=== PATIENT | male | born 1965 | race Hispanic/Latino ===

== ENCOUNTER 2016-08-30 11:10 | Emergency (ER) | payer OTHER ==
[2016-08-30 11:29] VITALS: RESP 20
--- NOTE | 2016-08-30 11:51 | ED PDOC ---
Arrival/HPI - General Chief Complaint: Upper Extremity Problem/Injury Time Seen by Provider: 08/30/16 11:14 Historian: Patient - History of Present Illness Narrative History of Present Illness (Text): 08/30/16 11:48 51-year-old male presents today with Left elbow pain status post exercising yesterday. Patient states he has been having problems with the elbow for the past couple of months and he was doing exercises for the triceps at the gym yesterday and felt a shooting pain to the posterior aspect of the elbow. Patient states he took 2 Advil last night without improvement of the symptoms. Patient states he is able to fully move the elbow but he has pain along the posterior aspect of the elbow. He denies numbness weakness tingling in the extremity. Time/Duration: Other (1 day) Symptom Onset: Sudden Symptom Course: Unchanged Quality: Aching, Stabbing Severity Level: 5 Activities at Onset: Other (lifting weights) Past Medical History - Provider Review Nursing Documentation Reviewed: Yes - Travel History Have you recently traveled outside [place] w/in the past 3 mons?: No - Infectious Disease Hx of Infectious Diseases: None - Cardiac Hx MO: Yes (2015) - Endocrine/Metabolic Hx Diabetes Mellitus Type 2: Yes - Psychiatric Hx Substance Use: No - Surgical History Hx Coronary Stent: Yes (x1) - Anesthesia Hx Anesthesia: Yes Hx Anesthesia Reactions: No Hx Malignant Hyperthermia: No Family/Social History - Physician Review Nursing Documentation Reviewed: Yes Family/Social History: Unknown Family HX Smoking Status: Never Smoked Hx Alcohol Use: Yes Frequency of alcohol use: Socially Hx Substance Use: No Allergies/Home Meds Allergies/Adverse Reactions: Allergies No Known Allergies Allergy (Verified 08/30/16 11:29) Home Medications: Home Meds Medication Instructions Recorded Confirmed Prasugrel Hydrochloride [Effient] 1 tab PO DAILY 08/30/16 08/30/16 Review of Systems - Review of Systems Constitutional: absent: Fatigue, Fevers Respiratory: absent: SOB, Cough Cardiovascular: absent: Chest Pain, Palpitations Gastrointestinal: absent: Abdominal Pain Musculoskeletal: Arthralgias. absent: Back Pain, Neck Pain Skin: absent: Rash Neurological: absent: Headache Physical Exam Vital Signs Reviewed: Yes Vital Signs Temp Pulse Resp BP Pulse Ox 08/30/16 11:22 98.3 F 92 H 20 152/81 H 99 Temperature: Afebrile Blood Pressure: Hypertensive Pulse: Regular Respiratory Rate: Normal Appearance: Positive for: Well-Appearing, Non-Toxic, Comfortable Pain Distress: None Mental Status: Positive for: Alert and Oriented X 3 - Systems Exam Head: Present: Atraumatic Mouth: Present: Moist Mucous Membranes Neck: Present: Normal Range of Motion Respiratory/Chest: Present: Clear to Auscultation Cardiovascular: Present: Regular Rate and Rhythm Upper Extremity: Present: Normal ROM, NORMAL PULSES, Tenderness (left elbow; + ttp over the posterior aspect of the elbow over the approx area of the triceps tendon. no edema, no erythema; full rom of elbow with pain. sensation and distal pulses intact. cap refill <2. ), Neurovascularly Intact, Capillary Refill < 2s. No: Swelling, Erythema, Deformity Neurological: Present: GCS=15, Speech Normal Skin: Present: Warm, Dry, Normal Color. No: Rashes Psychiatric: Present: Alert, Oriented x 3 Medical Decision Making ED Course and Treatment: 08/30/16 11:53 Patient nontoxic well-appearing in no distress with stable vital signs X-rays of the left elbow; no fracture,There is an osteophyte arising from the olecranon. toradol IM zaid wrap applied I discussed all results with patient advised to followup with the orthopedist for the next 2 days. Return if symptoms worsen persist or new symptoms develop Patient verbalizes understanding of discharge instructions and need for immediate followup. Impression: elbow pain Motrin every 6 hours as needed for pain flexeril; 1 tablet every 8 hours as needed for muscle spasms; may cause drowsiness. Rest, ice, compression, elevation Followup with the orthopedist within the next 2 days Followup with primary care physician within the next 2 days Return if any other concerning symptoms develop 08/30/16 12:27 - RAD Interpretation Radiology Orders: 08/30/16 11:42 ELBOW LEFT 3 VIEWS ROUTINE [RAD] Stat - Medication Orders Current Medication Orders: Ketorolac Tromethamine (Toradol) 60 mg IM STAT STA Stop: 08/30/16 11:44 Disposition/Present on Arrival - Present on Arrival Any Indicators Present on Arrival: No History of DVT/PE: No History of Uncontrolled Diabetes: No Urinary Catheter: No History of Decub. Ulcer: No History Surgical Site Infection Following: None - Disposition Have Diagnosis and Disposition been Completed?: Yes Diagnosis: Elbow pain Disposition Time: 12:00 Patient Plan: Discharge Condition: GOOD Discharge Instructions (ExitCare): Arthralgia (ED) Additional Instructions: Motrin every 6 hours as needed for pain flexeril; 1 tablet every 8 hours as needed for muscle spasms; may cause drowsiness. Rest, ice, compression, elevation Followup with the orthopedist within the next 2 days Followup with primary care physician within the next 2 days Return if any other concerning symptoms develop Prescriptions: Cyclobenzaprine [Cyclobenzaprine HCl] 10 mg PO Q8 #10 tab Referrals: Messi Rivera MD [Staff Provider] - Follow up with primary Fatuma Martin MD [Primary Care Provider] - Follow up with primary Forms: WORK NOTE
--- NOTE | 2016-08-30 12:20 | RAD ---
PROCEDURE: Radiographs of the left elbow. HISTORY: elbow pain COMPARISON: No prior. FINDINGS: BONES: Normal. No fracture. JOINTS: Normal. No osteoarthritis. SOFT TISSUES: Normal. JOINT EFFUSION: None. OTHER FINDINGS: There is an osteophyte arising from the olecranon. IMPRESSION: No acute findings
[2016-08-30 12:30] VITALS: BP 125/63; PULSE 73; TEMP 98; O2SAT 100
== END 2016-08-30 12:38 | disposition home or self-care (01) ==
LOC: ED 11:10
DX: M25.522 Pain in left elbow (principal); E11.9 Type 2 diabetes mellitus without complications
CPT/HCPCS: 73080; 96372; 99284; J1885